=== PATIENT | female | born 1945 | race Caucasian/White ===

== ENCOUNTER 2018-04-10 00:38 | Observation (INO) | payer MEDICARE, OTHER ==
[2018-04-10 04:59] LABS: Troponin I Less than 0.010 ng/mL (< 0.028)
[2018-04-10 06:42] VITALS: BMI 24.3
[2018-04-10] MEDS ORDERED: Acetaminophen 325 MG TAB PO PRN (06:52)
[2018-04-10 08:19] LABS: Troponin I 0.018 ng/mL (< 0.028)
[2018-04-10] MEDS ORDERED: Aspirin 325 MG TAB PO SCH (09:00)
--- NOTE | 2018-04-10 10:11 | HP ---
CHIEF COMPLAINT: Altered mental status. HISTORY OF PRESENT ILLNESS: This patient is a 72-year-old female with a past medical history most no table for rheumatoid arthritis, significant fibromyalgia and migraines who presented originally to [facility]. The patient lives in [facility]. She reports that for a couple of days she has been experiencing severe pain in her right hip, which has caused her some difficulty in ambul ating. She stated it was not in the joint, but was more in the muscle, but indicated by pointing guero t it was actually near the hip joint area. She took some Flexeril 2 days ago. She had left over fro m a prior back surgery and then on the day of admission yesterday or the day she presented to the ER yesterday, she took some Tylenol #3. States she took 1 in the morning and then took another one arou nd 1:00 p.m. She states she usually tolerates those well and then till she felt fine. However, the patient went to lunch with her family members and was noted to be disengaged which was out of charact er for her. She was not really cognizant of there being an issue. She states she did not feel well in general, which is not uncommon given her fibromyalgia symptoms, so she went home to take a nap. S ometime in the afternoon hours, she sent text messages to her son and daughter which were apparently incoherent. Then, a family member talked to her on the phone and convinced her that she needed to be evaluated, called the to go back home and get her and took her to the Emergency Department [facility]. There, it was notable that the patient had a temperature of 100.2, but according to the , she was completely back to her normal mental state when he went to pick her up and took her to the emergency department. The patient also notes a history of recurrent urinary tract infecti ons and states that she has had urinary frequency for 4-5 weeks, but she is on a daily suppressive do se of Augmentin. REVIEW OF SYSTEMS: Only notable for some mild nasal congestion in the morning which resolves quickly . She states her neck is a bit sore, but she fell about a week ago and these are common symptoms for her and not necessarily out of the ordinary. She also reports that she tends toward more constipati on and has chronic joint and muscle pain. Otherwise a ten system review is negative except for thing s mentioned in history of present illness. PAST MEDICAL HISTORY: Hypertension, recurrent urinary tract infections for which she is on suppressi ve daily low dose Augmentin and migraine headaches. She states these were twice a week until 3-4 mon ths ago and they have essentially resolved, rheumatoid arthritis. She was on Arava previously, but d iscontinued it for fear of her renal function worsening. She is followed by Dr. Blevins, [facility] in the [facility]. She has a history of a DVT over a year ago. This in the right lower extrem ity. It was apparently unprovoked and she has been placed on Eliquis indefinitely. She also has fib romyalgia syndrome. 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 The patient reports that she was getting some spinal injections and somehow that broke off th e chip of bone. It sounds like possibly a lateral process that required surgical excision. SOCIAL HISTORY: The patient is a nonsmoker, nondrinker, nondrug user. She is . Her is her surrogate decision maker and she is a F[employer]. PHYSICAL EXAMINATION: VITAL SIGNS: T-max since arriving here is 99.0, pulse 80, respirations 16, O2 sat 96% on room air an d BP is 137/65. GENERAL APPEARANCE: She is awake, alert, oriented, pleasant, cooperative. HEENT: There is no sinus tenderness. NECK: There is tenderness to palpation in the left paraspinous muscles. HEART: Regular rate and rhythm without murmurs, gallops or rubs. LUNGS: Clear to auscultation bilaterally with no wheezes or rales. ABDOMEN: Soft, nontender, nondistended, positive bowel sounds, no masses, no organomegaly. EXTREMITIES: Warm and dry with no edema. Right hip joint has fairly good range of motion and only m odest tenderness with internal rotation. It does tend to bother her, but when she attempts to sit up for the exam. LABORATORY DATA: White count 11.7, hemoglobin 12.0, platelets 185, sodium 140, potassium 4.0, CO2 is 28, BUN 30, creatinine 1.75, glucose 110, sodium 140, potassium 4.0, chloride 104. LFTs normal. CK -MB initially 8.8 and troponin 0.013. CK was 223. Repeat CK-MB was 8.1. Troponin less than 0.01. Urinalysis shows some protein, small blood, otherwise negative. IMAGING DATA: Chest x-ray is clear. CT brain is negative for any acute processes. There are tiny l acunar infarctions in each basal ganglia of indeterminate age and chronic small vessel ischemic parmar es with mild sinus disease involving the left sphenoid sinus. ASSESSMENT AND PLAN: 1. Altered mental status. Differential includes a possible infection versus medication reaction giv en that she has been taking Flexeril, Lyrica, and Tylenol #3. She appears to be resolved spontaneous ly after taking a nap in the afternoon. Could potentially be TIA as well given the microvessel parmar es on the CT. We will obtain an echocardiogram and carotid Dopplers. Neurology consult pending as abigail lutz. 2. Febrile illness. The patient had a single documented fever which she was completely unaware of a s well as a very mild leukocytosis. There is no evident an obvious source of infection as her chest x-ray and urinalysis are clear and she is otherwise asymptomatic. I am not going to start any antibi otics at this time. We will continue to monitor if she does have a recurrent fever. Would draw some cultures and potentially start some antibiotics at that time. 3. Elevated CK-MB and elevated creatinine kinase. These are likely due to a recent mechanical fall about 1 week ago. Appears to be relatively benign. I doubt this is cardiac in nature with the negat leno troponins at this point. Continue with telemetry. 4. Right hip pain. The patient has history of rheumatoid arthritis. We will obtain x-rays and cons ult physical therapy. 5. History of deep vein thrombosis. The patient is on oral Eliquis. We will continue that. That w ill preclude the need for deep vein thrombosis prophylaxis otherwise. 6. History of fibromyalgia syndrome. We will continue with her Lyrica for now. 7. Solitary kidney, status post remote nephrectomy. Creatinine appears to be in line with her basel ine. Her most recent in our computer was in 05/2016 at 1.84.
--- NOTE | 2018-04-10 10:38 | ULT ---
CAROTID ULTRASOUND: HISTORY: TIA. COMPARISON: None. TECHNIQUE: Multiplanar castaneda-scale and color Doppler images were obtained in a carotid ultrasound. Spectral anal ysis of the Doppler waveforms was performed. FINDINGS: No significant plaque is seen in either common or internal carotid arteries. The Doppler waveforms a re normal bilaterally. The peak systolic velocity in the right ICA is 80 cm per second. The peak systolic velocity in the r ight CCA is 75 cm per second. The right ICA/CCA ratio is 1.1. The peak systolic velocity in the left ICA is 74 cm per second. The peak systolic velocity in the le ft CCA is 105 cm per second. The left ICA/CCA ratio is 0.7. Both vertebral arteries demonstrate antegrade flow without focal stenosis. IMPRESSION: No evidence of hemodynamically significant stenosis. POS: ZULEIKA
--- NOTE | 2018-04-10 11:10 | RAD ---
RIGHT HIP TWO VIEWS: History: Hip pain. Comparison: None. FINDINGS: No fracture. No malalignment. Small acetabular osteophyte. Mild enthesopathic change of the hamstring tendons. Mild degenerative diffuse right SI joints and pubic symphysis. IMPRESSION: Low grade degenerative changes. No acute osseous abnormality. POS: TPC
[2018-04-10] MEDS: Acetaminophen/Codeine 30-300mg Tablet PO PRN ×2 (13:07→21:02)
[2018-04-10] MEDS: Pregabalin 50 MG CAP PO SCH (21:05)
[2018-04-10] MEDS ORDERED: Rizatriptan Benzoate 10 MG MLT TAB PO PRN (22:08)
[2018-04-10] MEDS ORDERED: Acetaminophen/Codeine 30-300mg Tablet PO PRN (22:15)
[2018-04-11 05:06] LABS: #Basophils 0.1 thou/uL (0.0-0.2); #Eosinphils 0.3 thou/uL (0.0-0.7); #Lymphocytes 2.3 thou/uL (1.20-3.40); #Monocytes 0.8 thou/uL (0.11-0.59); #Neutrophils 4.1 thou/uL (1.40-6.50); %Basophils 0.7 % (0.0-1.0); %Eosinophils 4.4 % (0.0-10.0); %Lymphocytes 29.9 % (21.0-51.0); %Monocytes 10.8 % (0.0-10.0); %Neutrophils 54.3 % (42.0-75.0); Hemoglobin 11.9 g/dL (12.0-16.0); Mean Corpuscular HGB CONC 34.3 g/dL (32.0-36.0); Mean Corpuscular Hemoglobin 31.6 pg (27.0-31.0); Mean Corpuscular Volume 91.9 fL (78.0-98.0); Mean Platelet Volume 7.7 fL (7.4-10.4); Platelet Count 212 thou/uL (130-400); RBC Distribution Width 11.8 % (11.5-14.5); Red Blood Cell (RBC) Count 3.78 mill/uL (4.20-5.40); White Blood Cell (WBC) Count 7.6 thou/uL (4.8-10.8)
[2018-04-11 05:20] LABS: ALT (SGPT) 18 U/L (8-55); AST (SGOT) 19 U/L (5-34); Albumin 3.1 g/dL (3.4-4.8); Alkaline Phosphatase 59 U/L (40-150); Anion Gap 12 mmol/L (10-20); BUN (Urea Nitrogen) 28 mg/dL (9.8-20.1); Bilirubin, Total 0.7 mg/dL (0.2-1.2); Calc. Creatinine Clearance 37 mL/min (70-130); Calcium 9.4 mg/dL (7.8-10.44); Carbon Dioxide 27 mmol/L (23-31); Cardiac Risk 4.7 (Less than 4.5); Chloride 105 mmol/L (98-107); Cholesterol 182 mg/dl (< 200 Desired); Estimated GFR-MDRD 35; Globulin 2.8 g/dL (2.4-3.5); Glucose 99 mg/dL (83-110); HDL Cholesterol 39 mg/dL (>60 Neg Risk); LDL Cholesterol, Calculated 119 mg/dL; Potassium 3.8 mmol/L (3.5-5.1); Protein, Total 5.9 g/dL (6.0-8.3); Sodium 140 mmol/L (136-145); Triglycerides 118 mg/dL (Less than 150)
--- NOTE | 2018-04-11 05:51 | CON ---
DATE OF CONSULTATION: 04/10/2018 REFERRING PROVIDER: Dr. Shay Feldman. REASON FOR CONSULTATION: Altered mental status. HISTORY OF PRESENT ILLNESS: Ms. Tyler is a pleasant 72-year-old female, who has been consulted for evaluation of altered mental status. History is obtained from as well as son who were present at bedside. The patient reports that she has been having hip pain on the right side and she had taken Tylenol No. 3 along with Lyrica. After which, she developed an episode of confusion. She does not recall the event that took place on yesterday, which caused her to come to the emergency room. According to the family, she was talking and having difficulty with getting her words out. She was also texting her family members and it was numbers and symbols without any actual words, which did not make any sense and thus they brought her to the emergency room for further evaluation. On arrival to [facility] , her symptoms did improve and she feels coming back to her baseline now. She does report that she has been having episodes of confusion that are coming and going over the past 1 year. She has a history of lower back pain for a couple of years as she had received epidural injections and during that time she had complications which required a surgery. She has been placed on Lyrica for this lower back pain and since she has been on Lyrica she has been having episodes of confusion that comes and goes. However, this episode lasted longer than usual. She currently denies any headache, chest pain, palpitation, dysarthria or dysphagia. PAST MEDICAL HISTORY: Significant for hypertension, recurrent urinary tract infections, migraine headaches, rheumatoid arthritis, DVT, and fibromyalgia. PAST SURGICAL HISTORY: Significant for partial hysterectomy, nephrectomy, breast augmentation, breast implant removal, cataract surgery, lumbar spine surgery. SOCIAL HISTORY: She is . She denies smoking cigarettes, drinking alcohol or use illicit drugs. FAMILY HISTORY: Noncontributory. CURRENT MEDICATIONS: Please review MAR. ALLERGIES: Include PROPOXYPHENE. REVIEW OF SYSTEMS: As mentioned above in the HPI, otherwise negative. PHYSICAL EXAMINATION: VITAL SIGNS: Blood pressure of 152/71, pulse of 106, temperature of 98.6, respirations of 16, O2 sats of 92% on room air. GENERAL: Well-developed, well-nourished female, in no apparent distress. RESPIRATORY: Clear to auscultation bilaterally. CARDIOVASCULAR: Regular rate and rhythm. NEUROLOGIC: Mental status: The patient is awake, alert, oriented x3. Speech and language: Fluent speech. Cranial nerves: Pupils are 3 mm and reactive. Visual martinez are intact. External muscles are intact. No nystagmus is noted. Face is symmetric. Tongue and uvula are midline. Motor exam showed normal tone and bulk with 5/5 strength in both upper and left lower extremities. Sensory: Sensation is intact and symmetric. Deep tendon reflexes: 2+ reflexes in both upper and lower extremities. Babinski: Plantar responses flexion bilaterally. Coordination intact to [id number] and finger tapping bilaterally. LABORATORY DATA: Labs are reviewed, which included CBC, coag panel, D-dimer, CMP, CPK, CK-MB, and urinalysis, which is significant for WBC of 11.7, D-dimer of 2.74. BUN of 30, creatinine of 1.75, CPK of 223, CK-MB of 8.1, otherwise unremarkable. IMAGING STUDIES: CT head without contrast was reviewed, which showed no acute intracranial abnormality. IMPRESSION: 1. Altered mental status, likely toxic encephalopathy. 2. Possible drug induced reaction. ASSESSMENT AND PLAN: Ms. Tyler is a pleasant 72-year-old female, who presented with the episode of confusion. These episodes have been on and off for the past 1 year, they are in the context of after starting Lyrica. In my opinion, this recent event may have been triggered by use of Lyrica along with Tylenol No. 3. I would recommend obtaining MRI brain without contrast in the morning. I will follow up the results of MRI and provide further recommendations at that time. The patient should be okay to be discharged to home if MRI is negative. No further neurological workup needed from my standpoint. Thank you for the consultation. LILA
[2018-04-11] MEDS: Pregabalin 50 MG CAP PO SCH (08:52)
[2018-04-11] MEDS ORDERED: Apixaban 2.5 MG TAB PO SCH (09:00)
[2018-04-11] MEDS ORDERED: Venlafaxine HCl XR 75 MG CAP PO SCH (09:00)
[2018-04-11] MEDS ORDERED: Non-Formulary Item 1 EACH (Desvenlafaxine Succinate [Pristiq] 50 MG) PO SCH (09:00)
[2018-04-11] MEDS ORDERED: RIZATRIPTAN BENZOATE 10 MG PO SCH (09:00)
--- NOTE | 2018-04-11 12:32 | MRI ---
MRI BRAIN WITHOUT CONTRAST: HISTORY: Transient ischemic attack. Evaluate for stroke. COMPARISON: None. TECHNIQUE: Brain MRI is performed without contrast. Multisequential, multiplanar imaging is performed. FINDINGS: Calvarium has a normal T1 marrow signal intensity. Midline brain parenchymal structures are unremark able. No evidence of hemorrhage on the axial gradient echo sequence. There are T2 FLAIR and white matter hyperintensities due to chronic small-vessel ischemic changes of the white matter. There is no parenchymal mass, mass effect, or midline shift. Age-appropriate atro phy. Cortical castaneda-white matter differentiation is preserved. Central arterial flow voids are maintained. Absent restricted diffusion. Adequate aeration of the sinuses and mastoid air cells. IMPRESSION: 1. Absent restricted diffusion. No acute infarct. 2. Age-appropriate atrophy. 3. Chronic small-vessel ischemic change of the white matter. POS: JOSE LUIS
[2018-04-11 15:38] VITALS: BP 135/64; TEMP 98.1
--- NOTE | 2018-04-12 01:21 | DIS ---
DATE OF ADMISSION: 04/10/2018 DATE OF DISCHARGE: 04/11/2018 DISCHARGE DIAGNOSES: 1. Altered mental status secondary to medication interaction. 2. Right hip pain. 3. Fibromyalgia syndrome. 4. Rheumatoid arthritis. HOSPITAL COURSE: The patient is a 72-year-old female with history of fibromyalgia syndrome and rheum atoid arthritis. She presented to the emergency department after having an episode of being less int eractive and spending some nonsensical text messages to family. The patient spontaneously improved. She had initial negative workup. HOSPITAL COURSE: The patient was placed in observation. She had an initial imaging, which included a brain CT, which was negative as well as a chest x-ray. The patient also reported that she had been having increased hip pain in the right and had taken more Tylenol No. 3 along with her Lyrica in res ponse to that pain. She was seen by Neurology who felt the patient was likely having interaction bet ween the Lyrica and the [place] causing her transient altered mental status. The patient did, however, undergo carotid Doppler studies, which showed no evidence of hemodynamically significant stenosis. She also had MRI of the brain, which showed age-related atrophy and small vessel disease with no othe r findings. She had an echocardiogram that was still pending at the time of discharge. PHYSICAL EXAMINATION: VITAL SIGNS: On the day of discharge, temperature is 98.1, pulse 82, respirations 16, O2 sat 95% on room air. GENERAL: She is awake, alert, oriented, pleasant, cooperative. HEART: Regular rate and rhythm. LUNGS: Clear bilaterally. ABDOMEN: Benign. EXTREMITIES: Warm, dry with no edema. NEUROLOGIC: The patient appears appropriate. DISPOSITION: The patient is discharged to home. She is to have a regular diet and activity level as tolerated. She will continue with the rizatriptan, Lyrica, lisinopril, Pristiq, Flexeril, Eliquis, Tylenol No. 3. She is encouraged to minimize the usage of the Tylenol No. 3. She has to follow up w ith her primary care provider and her pain air route controller in [place] to determine if there is an alternative regimen that she could possibly use it might have less potential for interaction. She ca n return to the emergency department should she have any problems prior to that time.
== END 2018-04-11 17:16 | disposition home or self-care (01) ==
LOC: ERS 00:38 → 2SE 04:14
PROVIDERS: ADMIT Internal Medicine; ATTEND Internal Medicine
DX: R41.82 Altered mental status, unspecified (principal); T50.905A Adverse effect of unspecified drugs, medicaments and biological substances, initial encounter; M25.551 Pain in right hip; M79.7 Fibromyalgia; M06.9 Rheumatoid arthritis, unspecified; I10 Essential (primary) hypertension; Z88.8 Allergy status to other drugs, medicaments and biological substances; Z79.899 Other long term (current) drug therapy; Z86.718 Personal history of other venous thrombosis and embolism
CPT/HCPCS: 70551; 73502; 80053; 80061; 84484 ×2; 85025; 93005; 93306; 93880; 97139 ×3; 99285; G0378 ×2; G8978; G8979; G8980; 36415

== ENCOUNTER 2020-01-22 12:46 | Outpatient (CLI) | payer MEDICARE ==
--- NOTE | 2020-01-22 15:09 | MRI ---
MRI OF THE LUMBAR SPINE WITHOUT CONTRAST: 01/22/20 INDICATIONS: Low back pain. Leg weakness. No comparison exam. FINDINGS: There are degenerative changes noted. Minimal anterior wedging of the L2 vertebrae with anterior oste ophytes at L1-2, L2-3, and L3-4. Degenerative disc and end plate changes are most pronounced at the L 2-3 level. Slight posterolisthesis of L2-3 and at L3-4 measuring approximately 3 mm at each level. Findings at each disc level are described: At L-2, minimal disc bulge. Mild facet hypertrophy. No central canal or foraminal stenosis. At L2-3, mild posterolisthesis as noted above with mild diffuse disc bulge. Facet and ligamentous hyp ertrophy. These changes result in mild central canal stenosis. No significant foraminal stenosis appa rent. At L3-4, slight posterolisthesis with broad based disc bulge. Prominent facet and ligamentous hypertr ophy. Very mild central canal stenosis. There is mild bilateral foraminal stenosis due to disc bulge and facet hypertrophy. At L4-5, diffuse disc bulge. Facet hypertrophy. Posterior laminectomy changes on the left. Mild centr al canal stenosis. Bilateral foraminal stenosis, more severe on the left due to disc bulge and facet hypertrophy. At L5-S1, mild disc bulge. Facet hypertrophy. No significant central canal stenosis. No significant foraminal stenosis. Degenerative disc changes with mild central canal stenosis and foraminal stenosis at L2-3, L3-4, and L4-5 levels as described above. POS: AGW
--- NOTE | 2020-01-22 15:49 | RAD ---
EXAM: LUMBAR SPINE FOUR VIEWS: 01/22/20 HISTORY: Low back pain. COMPARISON: None. FINDINGS: Postop laminectomy changes at L4. Multilevel disc osteophytosis and facet arthrosis. No evidence for abnormal translation between flexion and extension. There is mild retrolisthesis of L3 on L4 and L2 o n L3. IMPRESSION: Mild retrolisthesis of L2 on L3 and L3 on L4 but no abnormal translation between flexion and extensio n. Generalized spondylosis. POS: SJDI
== END 2020-01-22 12:47 | disposition home or self-care (01) ==
LOC: BICMRI 12:46
PROVIDERS: ATTEND Surgery
DX: M54.5 Low back pain (principal); R29.898 Other symptoms and signs involving the musculoskeletal system; M43.16 Spondylolisthesis, lumbar region; M47.816 Spondylosis without myelopathy or radiculopathy, lumbar region; M51.36 Other intervertebral disc degeneration, lumbar region; M48.061 Spinal stenosis, lumbar region without neurogenic claudication
CPT/HCPCS: 72120; 72148; 82565

== ENCOUNTER 2021-08-15 10:03 | Outpatient (CLI) | payer MEDICARE | END 2021-08-15 10:04 | disposition home or self-care (01) | LOC: RAD 10:03 | PROVIDERS: ATTEND Internal Medicine Critical Care Medicine | DX: R06.00 Dyspnea, unspecified (principal) | CPT/HCPCS: 71046 ==

== ENCOUNTER 2023-06-08 00:12 | Observation (INO) | payer MEDICARE ==
[2023-06-08 01:14] LABS: #Monocytes 0.3 thou/uL (0.11-0.59); %Basophils 0.3 % (0.0-1.0); %Lymphocytes 31.2 % (21.0-51.0); %Monocytes 8.5 % (0.0-10.0); %Neutrophils 59.4 % (42.0-75.0); Hematocrit 44.1 % (36.0-47.0); Mean Corpuscular Hemoglobin 32.7 pg (27.0-31.0); Mean Corpuscular Volume 96.1 fl (78.0-98.0); Platelet Count 133 10x3/uL (130-400); Red Blood Cell (RBC) Count 4.59 mill/uL (4.20-5.40); White Blood Cell (WBC) Count 3.4 10x3/uL (4.8-10.8)
[2023-06-08 01:41] LABS: ALT (SGPT) 22 U/L (8-55); AST (SGOT) 25 U/L (5-34); Albumin 3.9 g/dL (3.4-4.8); Alkaline Phosphatase 45 U/L (40-110); Anion Gap 17 mmol/L (10-20); BUN (Urea Nitrogen) 23 mg/dL (9.8-20.1); Bilirubin, Total 1.2 mg/dL (0.2-1.2); Calc. Creatinine Clearance 0 mL/min (70-130); Calcium 9.6 mg/dL (7.8-10.44); Carbon Dioxide 23 mmol/L (23-31); Chloride 105 mmol/L (98-107); Estimated GFR 29; Globulin 2.4 g/dL (2.4-3.5); Glucose 158 mg/dL (83-110); Lipase 20 U/L (8-78); Potassium 3.9 mmol/L (3.5-5.1); Protein, Total 6.3 g/dL (5.8-8.1); Sodium 141 mmol/L (136-145)
[2023-06-08 01:43] LABS: Troponin I Less than 0.010 ng/mL (< 0.028)
[2023-06-08 04:52] LABS: Lactic Acid 2.3 mmol/L (0.5-2.2)
[2023-06-08] MEDS ORDERED: Acetaminophen 325 MG TAB PO PRN (04:58)
[2023-06-08] MEDS ORDERED: Calcium Carbonate 500 MG ChewTAB PO PRN (04:58)
[2023-06-08] MEDS ORDERED: Ondansetron ODT 4 MG TAB PO PRN (04:58)
[2023-06-08] MEDS ORDERED: Dextrose 5%-Lactated Ringers 1,000 ML IV SCH (05:00)
[2023-06-08] MEDS ORDERED: Acetaminophen/Codeine 30-300mg Tablet PO PRN (08:01)
[2023-06-08] MEDS ORDERED: RIZATRIPTAN BENZOATE 5 MG PO PRN (08:01)
[2023-06-08] MEDS ORDERED: SUMAtriptan Succinate 50 MG TAB PO PRN ×2 (08:09→21:50)
[2023-06-08] MEDS: Cyclobenzaprine 10 MG TAB PO SCH (08:55)
[2023-06-08] MEDS: Apixaban 2.5 MG TAB PO SCH (08:55)
[2023-06-08] MEDS: Sodium Chloride 0.9% 1,000 ML IV SCH ×2 (08:55→21:51)
[2023-06-08] MEDS ORDERED: FOSINOPRIL SODIUM 40 MG PO SCH (09:00)
[2023-06-08] MEDS ORDERED: Famotidine 20 MG TAB PO SCH (09:00)
[2023-06-08] MEDS: Acetaminophen/Codeine 30-300mg Tablet PO PRN ×2 (09:03→19:57)
[2023-06-08] MEDS: Lisinopril 20 MG TAB PO SCH (09:17)
[2023-06-08 10:01] VITALS: BMI 22.7
[2023-06-08] MEDS ORDERED: Cyclobenzaprine 10 MG TAB PO SCH (22:15)
[2023-06-08 23:52] LABS: Bacteria/HPF None Seen HPF (None Seen); Bilirubin Negative (Negative); Blood, Urine 1+ (Negative); CAUTI Indications for Culture Pelvic or flank pain; Clarity Clear (Clear); Glucose, Urine (Dipstick) 30 mg/dL (Negative); Ketone, Urine Negative (Negative); Leukocyte Negative Leu/uL (Negative); Nitrite Negative (Negative); Protein, Urine (Dipstick) 100 mg/dL (Neg-Trace); RBC/HPF 0-3 HPF (0-3); Specific Gravity, Urine 1.008 (1.002-1.036); Squamous Epithelial 0-3 HPF (0-3); Urobilinogen Normal mg/dL (Less than 2); WBC/HPF 0-3 HPF (0-3); pH, Urine 6.5 (5.0-9.0)
[2023-06-08 23:54] LABS: Urine Culture Reflex No No
[2023-06-09 06:12] LABS: Hematocrit 40.5 % (36.0-47.0); Hemoglobin 12.9 g/dL (12.0-16.0); Mean Corpuscular HGB CONC 31.9 g/dL (32.0-36.0); Mean Corpuscular Hemoglobin 32.2 pg (27.0-31.0); Mean Platelet Volume 9.6 fL (7.4-10.4); Platelet Count 119 10x3/uL (130-400); RBC Distribution Width 13.2 % (11.5-14.5); Red Blood Cell (RBC) Count 4.01 mill/uL (4.20-5.40); White Blood Cell (WBC) Count 4.4 10x3/uL (4.8-10.8)
[2023-06-09 06:20] LABS: Delete Auto Diff?? YES; Manual Diff?? YES
[2023-06-09 06:31] LABS: Anion Gap 10 mmol/L (10-20); BUN (Urea Nitrogen) 18 mg/dL (9.8-20.1); Calc. Creatinine Clearance 33 mL/min (70-130); Calcium 8.8 mg/dL (7.8-10.44); Carbon Dioxide 23 mmol/L (23-31); Chloride 111 mmol/L (98-107); Estimated GFR 37; Glucose 83 mg/dL (83-110); Potassium 4.3 mmol/L (3.5-5.1); Sodium 140 mmol/L (136-145)
[2023-06-09 07:12] LABS: Anisocytosis SLIGHT = 6-15 cells HPF (0-5); Band 29 % (5-11); Burr Cells SLIGHT = 2-5 cells HPF (0-1); CellaVision Operator ID LAB.CMB; Lymphocytes 25 % (21-51); Macrocytosis SLIGHT = 6-15 cells HPF (0-5); Metamyelocyte 3 % (0-0); Monocytes 4 % (0-10); Neutrophil 38 % (42-75); Platelet Adequacy Comment Platelets Decreased; Polychromasia SLIGHT = 2-3 cells HPF (0-2); Total Cell Count 68
[2023-06-09] MEDS ORDERED: Amlodipine 5 MG TAB PO SCH (09:00)
[2023-06-09] MEDS ORDERED: Allopurinol 100 MG TAB PO SCH (09:00)
[2023-06-09] MEDS: Cyclobenzaprine 10 MG TAB PO SCH (09:49)
[2023-06-09] MEDS: Lisinopril 20 MG TAB PO SCH (09:49)
[2023-06-09] MEDS: Apixaban 2.5 MG TAB PO SCH (09:50)
[2023-06-09] MEDS: Acetaminophen/Codeine 30-300mg Tablet PO PRN (09:53)
[2023-06-09 16:42] VITALS: BP 111/67; TEMP 98.4
[2023-06-09] MEDS ORDERED: Atorvastatin Calcium 10 MG TAB PO SCH (21:00)
[2023-06-10] MEDS ORDERED: Famotidine 20 MG TAB PO SCH (09:00)
== END 2023-06-09 16:28 | disposition home or self-care (01) ==
LOC: ERS 00:12 → T4-B 06:36
PROVIDERS: ADMIT Student in an Organized Health Care Education/Training Program; ATTEND Family Medicine
DX: A08.4 Viral intestinal infection, unspecified (principal); I12.9 Hypertensive chronic kidney disease with stage 1 through stage 4 chronic kidney disease, or unspecified chronic kidney disease; N18.4 Chronic kidney disease, stage 4 (severe); G43.909 Migraine, unspecified, not intractable, without status migrainosus; E78.5 Hyperlipidemia, unspecified; F32.A Depression, unspecified; Z90.710 Acquired absence of both cervix and uterus; Z79.01 Long term (current) use of anticoagulants; Z88.8 Allergy status to other drugs, medicaments and biological substances; Z98.890 Other specified postprocedural states; Z79.82 Long term (current) use of aspirin; Z79.899 Other long term (current) drug therapy
CPT/HCPCS: 51701; 71045; 74176; 76705; 80048; 80053; 81001; 83605; 83690; 84484; 85025 ×2; 87040; 93005; 94760; 96360; 96361; 99285; G0378 ×3; 36415; J7050